=== PATIENT | male | born 1945 | race Caucasian/White ===

== ENCOUNTER 2016-06-14 17:41 | Observation (INO) | payer OTHER ==
[~2016-06-14] VITALS: Ht 172.7 cm; Wt 97.4 kg
[2016-06-14 18:51] LABS: BASE EXCESS -0.8 mEq/L (-3 to +3); BICARBONATE 23.5 mEq/L (22-26); CARBOXY HGB 0.4 % (0-5); COMMENTS - BLOOD GASES C+; FI02 21 %; METHEMOGLOBIN 0.9 % (0-1.5); PCO2 37 mm Hg (35-45); PO2 75 mm Hg (80-100); SITE RR; TOTAL RESP RATE 20 resp/min; pH 7.41 (7.35-7.45)
[2016-06-14 19:08] LABS: EOSINOPHIL (%) 0.9 % (0-5); EOSINOPHIL COUNT 0.1 K/uL (0-0.3); HEMATOCRIT 42.2 % (38.0-50.0); IMMATURE GRANULOCYTE (%) 0.3 % (0.0-0.7); IMMATURE GRANULOCYTE COUNT 0.3 K/uL; LYMPHOCYTE COUNT 1.6 K/uL (1.0-2.8); MCH 31.5 PG (29.0-34.0); MCHC 33.2 G/DL (30.0-36.0); MCV 94.8 FL (86-99); MEAN PLAT.VOLUME 9.6 uM^3 (9.0-12.4); MONOCYTE (%) 4.1 % (3-12); MONOCYTE COUNT 0.4 K/uL (0-0.8); NEUTROPHIL (%) 77.6 % (45-76); NEUTROPHIL COUNT 7.2 K/uL (1.8-6.4); PLATELET COUNT 320 K/uL (156-360); RBC DIS.WIDTH-CV 13.7 % (11.8-14.6); RBC DIS.WIDTH-SD 45.4 % (39-53); RED BLOOD COUNT 4.45 M/uL (4.00-5.50); WHITE BLOOD COUNT 9.3 K/uL (4.1-10.2)
[2016-06-14 19:18] LABS: INTER. NORMALIZED RATIO 1.1; PROTHROMBIN TIME 11.1 (9.2-11.2); PTT 21.7 (25-32)
[2016-06-14 19:19] LABS: CHLORIDE 109 mEq/L (99-109); POTASSIUM 4.2 mEq/L (3.7-5.4); SODIUM 144 mEq/L (136-147)
[2016-06-14 19:21] LABS: GLUCOSE 124 mg/dL (70-99)
[2016-06-14 19:22] LABS: ANION GAP 13 MEQ/L (2-14)
[2016-06-14 19:23] LABS: TOTAL BILIRUBIN 0.3 mg/dL (0.0-1.0)
[2016-06-14 19:25] LABS: ALKALINE PHOSPHATASE 33 IU/L (3-129); GFR ESTIMATE (CALCULATED) 49 mL/min/
[2016-06-14 19:26] LABS: UREA NITROGEN (BUN) 13 mg/dL (9-23)
[2016-06-14 19:29] LABS: TROP-I INTERPRETATION NEGATIVE; TROPONIN-I < 0.01 ng/mL (0.0-0.30)
[2016-06-14] MEDS ORDERED: FENOFIBRATE145 M1 PO (23:07)
[2016-06-14] MEDS ORDERED: AMLODIPINE BESY10 MG PO (23:08)
[2016-06-14] MEDS ORDERED: PROAIR HFA8.5 GM IH (23:08)
[2016-06-14] MEDS ORDERED: LIPITOR40 MG PO (23:08)
[2016-06-14] MEDS ORDERED: SPIRIVA1 INHALATI IH (23:09)
[2016-06-14] MEDS ORDERED: SYMBICORT60 INHALAT IH (23:09)
[2016-06-14] MEDS ORDERED: NEXIUM40 MG PO (23:09)
[2016-06-14] MEDS ORDERED: LOPRESSOR25 MG PO (23:09)
[2016-06-14] MEDS ORDERED: LO-DOSE ASPIRIN81 M1 PO (23:16)
[2016-06-15 01:45] VITALS: BP 122/76
[2016-06-15 04:18] VITALS: BP 114/56
[2016-06-15 07:14] LABS: TROP-I INTERPRETATION NEGATIVE; TROPONIN-I < 0.01 ng/mL (0.0-0.30)
[2016-06-15 08:12] VITALS: BP 119/64
[2016-06-15 11:45] VITALS: BP 116/58
[2016-06-15 12:22] LABS: ANION GAP 11 MEQ/L (2-14); CHLORIDE 102 MEQ/L (99-109); GFR ESTIMATE (CALCULATED) > 59 mL/min/; GLUCOSE 133 mg/dL (70-99); POTASSIUM 3.6 MEQ/L (3.7-5.4); SAMPLE HEMOLYSIS CHECK 0; SAMPLE ICTERIC CHECK 0; SAMPLE LIPEMIA CHECK 0; SODIUM 138 MEQ/L (136-147); UREA NITROGEN (BUN) 12 mg/dL (9-23)
[2016-06-15 12:23] LABS: TROP-I INTERPRETATION NEGATIVE; TROPONIN-I < 0.01 ng/mL (0.0-0.30)
[2016-06-15] MEDS ORDERED: PREDNISONE10 MG PO (13:42)
[2016-06-15] MEDS ORDERED: AZITHROMYCIN500 M1 PO (13:42)
== END 2016-06-15 15:45 | disposition home or self-care (01) ==
LOC: EME 17:41 → EDOF 06-15 00:30 → 5WEST 06-15 01:13
PROVIDERS: Emergency Medicine; Hospitalist; Nurse Practitioner Adult Health
DX: R07.9 Chest pain, unspecified (principal); R55 Syncope and collapse; J44.0 Chronic obstructive pulmonary disease with (acute) lower respiratory infection; J20.9 Acute bronchitis, unspecified; N17.9 Acute kidney failure, unspecified; I25.10 Atherosclerotic heart disease of native coronary artery without angina pectoris; Z95.1 Presence of aortocoronary bypass graft; I10 Essential (primary) hypertension; E78.5 Hyperlipidemia, unspecified; R94.31 Abnormal electrocardiogram [ECG] [EKG]; R06.02 Shortness of breath; F17.290 Nicotine dependence, other tobacco product, uncomplicated; Z82.49 Family history of ischemic heart disease and other diseases of the circulatory system; Z88.5 Allergy status to narcotic agent
CPT/HCPCS: 36600; 70450; 71010; 71275; 80048; 80053; 82803; 83880; 84484; 85025; 85610; 85730; 93005; 94640; 94644; 99281; 99285; G0378; J1650; J1956; J2930; J7030; J7512; J7644